=== PATIENT | female | born 1960 | race Caucasian/White ===

== ENCOUNTER → 2017-06-01 | Day surgery (SDC) | payer OTHER ==
--- NOTE | 2017-06-02 11:34 | PATH ---
Surgical Pathology Report Patient Name: SHENA WHALEN [facility]. Rec. #: [id number] /Age/Gender: 1960 (Age: 56) / F Account: [id number] Location: [facility] Taken: 06/01/2017 Received: 06/01/2017 Reported: 06/02/2017 Physicians: Chely Dinh M.D. Specimen(s) Received A: RIGHT BREAST CORE BIOPSY WITH CALCIFICATION B: RIGHT BREAST CORE BIOPSY WITHOUT CALCIFICATION Clinical History Nonpalpable lesion Mammographic findings: Microcalcification, suspicious Final Diagnosis A. RIGHT BREAST, WITH CALCIFICATION, STEREOTACTIC NEEDLE CORE BIOPSY: BENIGN BREAST TISSUE WITH FIBROCYSTIC CHANGES INCLUDING USUAL DUCTAL HYPERPLASIA (UDH), COLUMNAR CELL CHANGE, STROMAL FIBROSIS, DUCTAL DILATATION, AND ASSOCIATED CALCIFICATION. B. RIGHT BREAST, WITHOUT CALCIFICATION, STEREOTACTIC NEEDLE CORE BIOPSY: BENIGN BREAST TISSUE WITH FIBROCYSTIC CHANGES INCLUDING ADENOSIS, COLUMNAR CELL CHANGE, STROMAL FIBROSIS, DUCTAL DILATATION, AND RARE MICROCALCIFICATION. Comment: Recommend correlation with clinical and radiologic findings and follow up as clinically indicated. Electronically Signed Kevon Atkins M.D. Gross Description A. Received in formalin labeled "right breast with calcification," are 5 baca-yellow, cylindrical portion of fibroadipose tissue ranging from 0.7-1.5 cm in length and averaging 0.3 cm in diameter. The specimens are submitted in toto in one cassette. B. Received in formalin labeled "right breast without calcifications," are 4 baca-yellow, cylindrical portions of fibroadipose tissue ranging from 0.7-1.1 cm in length and averaging 0.4 cm in diameter. The specimens are submitted in toto in one cassette. Time to formalin fixation: 4 minutes Total formalin fixation time: Approximately 8 hours. 06/01/201706/01/2017
== END | disposition home or self-care (01) ==
LOC: FMAMMOTONE 09:09
PROVIDERS: ATTEND Surgery
PROC: 0HBT3ZX Excision of Right Breast, Percutaneous Approach, Diagnostic (ICD-10-PCS; principal; 2017-06-01)
DX: N60.81 Other benign mammary dysplasias of right breast (principal); N60.31 Fibrosclerosis of right breast; N64.89 Other specified disorders of breast; R92.1 Mammographic calcification found on diagnostic imaging of breast
CPT/HCPCS: 19081; 87899; 88305-TC; A4648